=== PATIENT | female | born 1985 | race African-American/Black ===

== ENCOUNTER 2018-07-22 22:14 | Emergency (ER) | payer SELFPAY ==
[2018-07-22] MEDS ORDERED: Ketorolac Tromethamine 30 MG/ML VIAL ONE (23:59)
--- NOTE | 2018-07-23 08:20 | RAD ---
TWO VIEWS OF THE CHEST: COMPARISON: None. HISTORY: Sudden onset of shooting upper back pain. FINDINGS: Two views of the chest show normal sized cardiomediastinal silhouette. There is no evidence of consol idation, mass, or pleural effusion. The bones are unremarkable. IMPRESSION: No evidence of acute cardiopulmonary disease. POS: [facility]
== END 2018-07-23 01:06 | disposition home or self-care (01) ==
LOC: ERS 22:14
DX: S29.012A Strain of muscle and tendon of back wall of thorax, initial encounter (principal); X58.XXXA Exposure to other specified factors, initial encounter
CPT/HCPCS: 71046; 96372; J1885